=== PATIENT | female | born 1955 | race Caucasian/White ===

== ENCOUNTER 2020-11-19 10:43 | Observation (INO) | payer OTHER ==
[2020-11-19] MEDS ORDERED: SODIUM CHLORIDE 0.9% 500 ML 500 ML IV ONE (10:52)
[2020-11-19 11:16] LABS: Basophils % (A) 0 %; Eosinophils % (A) 0 %; HCT 39.9 % (34.0-46.0); HGB 13.8 gm/dL (11.4-16.0); Lymphocytes # (A) 1.3 k/uL (1.0-4.8); Lymphocytes % (A) 11 %; MCHC 34.5 g/dL (31.0-37.0); MCV 89.7 fL (80.0-100.0); Mean Platelet Volume 6.5; Monocytes # (A) 0.8 k/uL (0-1.0); Monocytes % (A) 6 %; Neutrophils # (A) 10.1 k/uL (1.3-7.7); Neutrophils % (A) 82 %; Platelet Count 360 k/uL (150-450); RBC 4.44 m/uL (3.80-5.40); RDW 12.7 % (11.5-15.5); WBC 12.4 k/uL (3.8-10.6)
--- NOTE | 2020-11-19 11:23 | ED ---
General Adult HPI - General Chief complaint: Altered Mental Status Stated complaint: ams Time Seen by Provider: 11/19/20 10:50 Source: patient, family, EMS, RN notes reviewed, old records reviewed Mode of arrival: EMS Limitations: no limitations - History of Present Illness Initial comments: 65-year-old female, history obtained from EMS and the patient's . She's had worsening confusion, hallucination over the past several days. Patient states she's had a steady decline over the past several weeks. She is unable to dress herself. She is not eating or drinking well. She has a history of Parkinson's. She has not had a reported fever. No vomiting. No pain complaints. - Related Data Home Medications Medication Instructions Recorded Confirmed Aspirin EC [Ecotrin Low Dose] 81 mg PO DAILY 11/19/20 11/19/20 Carbidopa/Levodopa [Sinemet 25-100 2 tab PO TID 11/19/20 11/19/20 mg Tablet] Cholecalciferol [Vitamin D3 (25 50 mcg PO DAILY 11/19/20 11/19/20 Mcg = 1000 Iu)] PARoxetine [Paxil] 10 mg PO DAILY 11/19/20 11/19/20 Simvastatin [Zocor] 20 mg PO HS 11/19/20 11/19/20 Allergies Allergy/AdvReac Type Severity Reaction Status Date / Time No Known Allergies Allergy Verified 11/19/20 12:07 Review of Systems ROS Statement: Those systems with pertinent positive or pertinent negative responses have been documented in the HPI. ROS Other: All systems not noted in ROS Statement are negative. Past Medical History Past Medical History: No Reported History Additional Past Medical History / Comment(s): MS, Parkinson's History of Any Multi-Drug Resistant Organisms: None Reported Past Surgical History: No Surgical Hx Reported Past Psychological History: No Psychological Hx Reported Smoking Status: Never smoker Past Alcohol Use History: None Reported General Exam Limitations: no limitations General appearance: alert, in no apparent distress Head exam: Present: atraumatic, normocephalic Eye exam: Present: normal appearance, PERRL ENT exam: Present: mucous membranes dry Neck exam: Present: normal inspection. Absent: tenderness, meningismus Respiratory exam: Present: normal lung sounds bilaterally. Absent: respiratory distress, wheezes, rales Cardiovascular Exam: Present: regular rate, normal rhythm GI/Abdominal exam: Present: soft. Absent: distended, tenderness, guarding, rebound Extremities exam: Present: normal inspection, normal capillary refill. Absent: pedal edema Neurological exam: Present: alert, other (Tremor). Absent: oriented X3, motor sensory deficit Skin exam: Present: warm, dry, intact Course Vital Signs 11/19/20 11/19/20 11/19/20 10:49 11:04 12:51 Temperature 98.5 F Pulse Rate 104 H 90 90 Respiratory 22 20 18 Rate Blood Pressure 158/100 140/50 O2 Sat by Pulse 100 96 Oximetry EKG Findings - EKG Comments: EKG Findings:: EKG: Normal sinus rhythm no ST segment elevation, poor baseline secondary to tremor artifact. Rate of 98. WA interval 126, QRS duration 68, QTC 441 Medical Decision Making - Medical Decision Making 65-year-old female with several days of progressive worsening confusion. Concern that this patient cannot remain at home given her current status. She has had CT brain which is negative for intracranial hemorrhage or mass effect. Showing diffuse atrophy. She has a leukocytosis, stable hemoglobin, normal CMP, 2+ ketones on urinalysis consistent with dehydration. She's given IV hydration and will be admitted for further evaluation treatment. Case discussed with Dr. Swain. - Lab Data Result diagrams: 11/19/20 10:58 11/19/20 10:58 Lab Results 11/19/20 11/19/20 11/19/20 Range/Units 10:58 10:58 10:58 WBC 12.4 H (3.8-10.6) k/uL RBC 4.44 (3.80-5.40) m/uL Hgb 13.8 (11.4-16.0) gm/dL Hct 39.9 (34.0-46.0) % MCV 89.7 (80.0-100.0) fL MCH 31.0 (25.0-35.0) pg MCHC 34.5 (31.0-37.0) g/dL RDW 12.7 (11.5-15.5) % Plt Count 360 (150-450) k/uL MPV 6.5 Neutrophils % 82 % Lymphocytes % 11 % Monocytes % 6 % Eosinophils % 0 % Basophils % 0 % Neutrophils # 10.1 H (1.3-7.7) k/uL Lymphocytes # 1.3 (1.0-4.8) k/uL Monocytes # 0.8 (0-1.0) k/uL Eosinophils # 0.0 (0-0.7) k/uL Basophils # 0.0 (0-0.2) k/uL PT 10.6 (9.0-12.0) sec INR 1.0 (<1.2) APTT 25.4 (22.0-30.0) sec Sodium (137-145) mmol/L Potassium (3.5-5.1) mmol/L Chloride (98-107) mmol/L Carbon Dioxide (22-30) mmol/L Anion Gap mmol/L BUN (7-17) mg/dL Creatinine (0.52-1.04) mg/dL Est GFR (CKD-EPI)AfAm (>60 ml/min/1.73 sqM) Est GFR (CKD-EPI)NonAf (>60 ml/min/1.73 sqM) Glucose (74-99) mg/dL Calcium (8.4-10.2) mg/dL Total Bilirubin (0.2-1.3) mg/dL AST (14-36) U/L ALT (4-34) U/L Alkaline Phosphatase (38-126) U/L Troponin I (0.000-0.034) ng/mL Total Protein (6.3-8.2) g/dL Albumin (3.5-5.0) g/dL Urine Color Yellow Urine Appearance Clear (Clear) Urine pH 6.0 (5.0-8.0) Ur Specific [place] 1.023 (1.001-1.035) Urine Protein 1+ H (Negative) Urine Glucose (UA) Negative (Negative) Urine Ketones 2+ H (Negative) Urine Blood Moderate H (Negative) Urine Nitrite Negative (Negative) Urine Bilirubin Negative (Negative) Urine Urobilinogen <2.0 (<2.0) mg/dL Ur Leukocyte Esterase Negative (Negative) Urine RBC 3 (0-5) /hpf Urine WBC 4 (0-5) /hpf Ur Squamous Epith Cells <1 (0-4) /hpf Urine Mucus Rare H (None) /hpf Influenza Type A (PCR) (Not Detectd) Influenza Type B (PCR) (Not Detectd) RSV (PCR) (Not Detectd) SARS-CoV-2 (PCR) (Not Detectd) 11/19/20 11/19/20 11/19/20 Range/Units 10:58 10:58 11:00 WBC (3.8-10.6) k/uL RBC (3.80-5.40) m/uL Hgb (11.4-16.0) gm/dL Hct (34.0-46.0) % MCV (80.0-100.0) fL MCH (25.0-35.0) pg MCHC (31.0-37.0) g/dL RDW (11.5-15.5) % Plt Count (150-450) k/uL MPV Neutrophils % % Lymphocytes % % Monocytes % % Eosinophils % % Basophils % % Neutrophils # (1.3-7.7) k/uL Lymphocytes # (1.0-4.8) k/uL Monocytes # (0-1.0) k/uL Eosinophils # (0-0.7) k/uL Basophils # (0-0.2) k/uL PT (9.0-12.0) sec INR (<1.2) APTT (22.0-30.0) sec Sodium 137 (137-145) mmol/L Potassium 3.8 (3.5-5.1) mmol/L Chloride 104 (98-107) mmol/L Carbon Dioxide 27 (22-30) mmol/L Anion Gap 6 mmol/L BUN 22 H (7-17) mg/dL Creatinine 0.69 (0.52-1.04) mg/dL Est GFR (CKD-EPI)AfAm >90 (>60 ml/min/1.73 sqM) Est GFR (CKD-EPI)NonAf >90 (>60 ml/min/1.73 sqM) Glucose 110 H (74-99) mg/dL Calcium 9.2 (8.4-10.2) mg/dL Total Bilirubin 0.8 (0.2-1.3) mg/dL AST 92 H (14-36) U/L ALT 29 (4-34) U/L Alkaline Phosphatase 78 (38-126) U/L Troponin I <0.012 (0.000-0.034) ng/mL Total Protein 6.8 (6.3-8.2) g/dL Albumin 4.1 (3.5-5.0) g/dL Urine Color Urine Appearance (Clear) Urine pH (5.0-8.0) Ur Specific [place] (1.001-1.035) Urine Protein (Negative) Urine Glucose (UA) (Negative) Urine Ketones (Negative) Urine Blood (Negative) Urine Nitrite (Negative) Urine Bilirubin (Negative) Urine Urobilinogen (<2.0) mg/dL Ur Leukocyte Esterase (Negative) Urine RBC (0-5) /hpf Urine WBC (0-5) /hpf Ur Squamous Epith Cells (0-4) /hpf Urine Mucus (None) /hpf Influenza Type A (PCR) Not Detected (Not Detectd) Influenza Type B (PCR) Not Detected (Not Detectd) RSV (PCR) Not Detected (Not Detectd) SARS-CoV-2 (PCR) Not Detected (Not Detectd) Disposition Clinical Impression: Altered mental status, Dehydration Disposition: ADMITTED IP TO THIS [facility] Condition: Stable Is patient prescribed a controlled substance at d/c from ED?: No Referrals: None,Stated [Primary Care Provider] - 1-2 days Decision to Admit Reason: Admit from EC Decision Date: 11/19/20 Decision Time: 14:00
[2020-11-19 11:24] LABS: ALT 29 U/L (4-34); AST 92 U/L (14-36); African American GFR (CKD) >90 (>60 ml/min/1.73 sqM); Albumin 4.1 g/dL (3.5-5.0); Alkaline Phosphatase 78 U/L (38-126); Anion Gap 6 mmol/L; Blood Urea Nitrogen 22 mg/dL (7-17); Calcium 9.2 mg/dL (8.4-10.2); Carbon Dioxide 27 mmol/L (22-30); Chloride 104 mmol/L (98-107); Glucose 110 mg/dL (74-99); Non-African American GFR(CKD) >90 (>60 ml/min/1.73 sqM); Potassium 3.8 mmol/L (3.5-5.1); Sodium 137 mmol/L (137-145); Total Bilirubin 0.8 mg/dL (0.2-1.3); Total Protein 6.8 g/dL (6.3-8.2)
[2020-11-19 11:37] LABS: Partial Thromboplastin Time 25.4 sec (22.0-30.0); Prothrombin Time 10.6 sec (9.0-12.0)
--- NOTE | 2020-11-19 12:55 | CT ---
EXAMINATION TYPE: CT brain wo con DATE OF EXAM: 11/19/2020 HISTORY: Weakness, visual disturbance, confusion. CT DLP: 1158 mGycm. Automated Exposure Control for Dose Reduction was Utilized. TECHNIQUE: CT scan of the head is performed without contrast. COMPARISON: None. FINDINGS: There is no acute intracranial hemorrhage or midline shift identified. There is mild diff use ventricular and sulcal prominence over the bilateral frontal lobes. Ch[place]-white matter differentia tion is maintained. Patchy soft tissue density consistent with cerumen is seen in the deep aspect of the external auditory canals bilaterally. The globes are intact and the visualized sinuses are clear. IMPRESSION: No acute intracranial hemorrhage or midline shift. There is mild to borderline moderate diffuse bilateral frontal lobe atrophy.
[2020-11-19 12:58] LABS: Appearance,Urine Clear (Clear); Bilirubin,Urine Negative (Negative); Blood,Urine Moderate (Negative); Color,Urine Yellow; Glucose,Urine (UA) Negative (Negative); Ketones,Urine 2+ (Negative); Leukocyte Esterase,Urine Negative (Negative); Mucus,Urine Rare /hpf; Nitrite,Urine Negative (Negative); Protein,Urine 1+ (Negative); RBC,Urine 3 /hpf (0-5); Specific Gravity,Urine 1.023 (1.001-1.035); Squamous Epithelial Cell,Urine <1 /hpf (0-4); Urobilinogen,Urine <2.0 mg/dL (<2.0); WBC,Urine 4 /hpf (0-5)
[2020-11-19] MEDS ORDERED: NALOXONE 0.4 MG/ML 1 ML VIAL IV PRN (13:58)
[2020-11-19] MEDS: ASPIRIN 81 MG PO SCH (14:44)
[2020-11-19] MEDS: SODIUM CHLORIDE 0.9% 1,000 ML IV SCH (14:44)
[2020-11-19] MEDS: PARoxetine 10 MG TAB PO SCH (14:44)
[2020-11-19] MEDS: CARBIDOPA-LEVODOPA 25-100 MG 1 EACH TAB PO SCH ×2 (16:12→22:35)
[2020-11-19] MEDS ORDERED: ATORVASTATIN 10 MG TAB PO SCH (21:00)
[2020-11-20] MEDS: SODIUM CHLORIDE 0.9% 1,000 ML IV SCH (00:19)
[2020-11-20 05:13] VITALS: TEMP 98.1
[2020-11-20 07:44] VITALS: BP 149/66; PULSE 86; RESP 16
[2020-11-20] MEDS: ASPIRIN 81 MG PO SCH (07:57)
[2020-11-20] MEDS: CARBIDOPA-LEVODOPA 25-100 MG 1 EACH TAB PO SCH (07:57)
[2020-11-20] MEDS: PARoxetine 10 MG TAB PO SCH (07:57)
[2020-11-20] MEDS ORDERED: CHOLECALCIFEROL 25 MCG (1000 IU) TABLET PO SCH (09:00)
[2020-11-20] MEDS ORDERED: RIVASTIGMINE 4.6MG/24HR PATCH TRANSDERM SCH (10:30)
--- NOTE | 2020-11-20 10:33 | P.HPIM ---
History of Present Illness H&P Date: 11/19/20 65-year-old female was brought in a cousin generalized weakness which is progressively getting worse and today which is much worse for last couple days has been going on for last several weeks. Patient does have history of Parkinson's. Patient denied any dysuria nausea vomiting patient doesn't have any signs or symptoms of sepsis chest x-ray did not show any pneumonia a year is not impressive for urinary tract infection. Patient doesn't have any fever. Patient is not on any medications that can cause confusion. Patient was recently started on Paxil about 2 months ago. Patient used to be on Lexapro which was switched because the she is believed to have some side effects from that. Patient follows up with neurology as an outpatient. Patient is basically being admitted for physical therapy and occupational therapy evaluation. I'll consult neurology because of her uncontrolled parkinsonian symptoms may benefit from atypical antiparkinsonian medications. Patient is presently on carbidopa levodopa. Review of Systems REVIEW OF SYSTEMS: CONSTITUTIONAL: No fever, no malaise, no fatigue. HEENT: No recent visual problems or hearing problems. Denied any sore throat. CARDIOVASCULAR: No chest pain, orthopnea, PND, no palpitations, no syncope. PULMONARY: No shortness of breath, no cough, no hemoptysis. GASTROINTESTINAL: No diarrhea, no nausea, no vomiting, no abdominal pain. NEUROLOGICAL: As mentioned in HPI HEMATOLOGICAL: Denies any bleeding or petechiae. GENITOURINARY: Denies any burning micturition, frequency, or urgency. MUSCULOSKELETAL/RHEUMATOLOGICAL: Denies any joint pain, swelling, or any muscle pain. ENDOCRINE: Denies any polyuria or polydipsia. The rest of the 14-point review of systems is negative. Past Medical History Past Medical History: No Reported History Additional Past Medical History / Comment(s): MS, Parkinson's History of Any Multi-Drug Resistant Organisms: None Reported Past Surgical History: Section Past Anesthesia/Blood Transfusion Reactions: No Reported Reaction Past Psychological History: No Psychological Hx Reported Smoking Status: Never smoker Past Alcohol Use History: None Reported Past Drug Use History: None Reported - Past Family History Father History Unknown: Yes Mother History Unknown: Yes Medications and Allergies Home Medications Medication Instructions Recorded Confirmed Type Aspirin EC [Ecotrin Low Dose] 81 mg PO DAILY 11/19/20 11/19/20 History Carbidopa/Levodopa [Sinemet 25-100 2 tab PO TID 11/19/20 11/19/20 History mg Tablet] Cholecalciferol [Vitamin D3 (25 50 mcg PO DAILY 11/19/20 11/19/20 History Mcg = 1000 Iu)] PARoxetine [Paxil] 10 mg PO DAILY 11/19/20 11/19/20 History Simvastatin [Zocor] 20 mg PO HS 11/19/20 11/19/20 History Allergies Allergy/AdvReac Type Severity Reaction Status Date / Time No Known Allergies Allergy Verified 11/19/20 12:07 Physical Exam Vitals: Vital Signs Temp Pulse Pulse Resp BP BP Pulse Ox 11/20/20 08:00 16 11/20/20 07:00 98.1 F 86 16 149/66 98 11/20/20 04:00 98.1 F 80 18 143/75 97 11/20/20 00:17 97.6 F 61 18 112/56 99 11/19/20 22:00 70 16 112/64 99 11/19/20 18:29 98.5 F 63 18 108/57 100 11/19/20 16:04 76 20 150/76 99 11/19/20 14:46 96 20 160/81 97 11/19/20 12:51 90 18 140/50 96 11/19/20 11:04 90 20 11/19/20 10:49 98.5 F 104 H 22 158/100 100 Intake and Output 11/19/20 11/20/20 11/20/20 22:59 06:59 14:59 Other: Voiding Method Toilet # Voids 1 Weight 59.874 kg PHYSICAL EXAMINATION: GENERAL: The patient is alert and oriented x3, not in any acute distress. Well developed, well nourished. HEENT: Pupils are round and equally reacting to light. EOMI. No scleral icterus. No conjunctival pallor. Normocephalic, atraumatic. No pharyngeal erythema. No thyromegaly. CARDIOVASCULAR: S1 and S2 present. No murmurs, rubs, or gallops. PULMONARY: Chest is clear to auscultation, no wheezing or crackles. ABDOMEN: Soft, nontender, nondistended, normoactive bowel sounds. No palpable organomegaly. MUSCULOSKELETAL: No joint swelling or deformity. EXTREMITIES: No cyanosis, clubbing, or pedal edema. NEUROLOGICAL: Significant parkinsonian tremor generalized weakness no focal deficits. SKIN: No rashes. Results CBC & Chem 7: 11/19/20 10:58 11/19/20 10:58 Labs: Abnormal Lab Results - Last 24 Hours (Table) 11/19/20 11/19/20 11/19/20 Range/Units 10:58 10:58 10:58 WBC 12.4 H (3.8-10.6) k/uL Neutrophils # 10.1 H (1.3-7.7) k/uL BUN 22 H (7-17) mg/dL Glucose 110 H (74-99) mg/dL AST 92 H (14-36) U/L Urine Protein 1+ H (Negative) Urine Ketones 2+ H (Negative) Urine Blood Moderate H (Negative) Urine Mucus Rare H (None) /hpf Thrombosis Risk Factor Assmnt - Choose All That Apply Any of the Below Risk Factors Present?: No Other Risk Factors: Yes Each Risk Factor Represents 2 Points: Age 61-74 years Other congenital or acquired thrombophilia - If yes, enter type in comment: No Thrombosis Risk Factor Assessment Total Risk Factor Score: 2 Thrombosis Risk Factor Assessment Level: Low Risk Assessment and Plan Plan: -Generalized weakness: Secondary to worsening Parkinson's. We'll consult neurology physical therapy occupational therapy evaluation patient may need placement in subacute rehabilitation will need physical therapy . -Hyperlipidemia -Depression -Possible parkinsonian dementia. -DVT prophylaxis Lovenox
[2020-11-20] MEDS ORDERED: ENOXAPARIN 40 MG/0.4 ML SYRINGE SQ SCH (10:45)
--- NOTE | 2020-11-20 11:09 | P.CNNES ---
History of Present Illness Consult date: 11/20/20 Requesting physician: Chris Swain Reason for Consult: Parkinson's and weakness History of Present Illness: Patient is a 65-year-old female came to the hospital 10:43 AM by ambulance for worsening confusion, hallucination over the past several days. has mentioned that patient has steadily declined over the past several weeks. She was unable to dress herself. She is not eating or drinking well. She has Parkinson's disease. Patient's was present, who informed me that patient was diagnosed with Parkinson's disease about 3 years ago although symptoms have been present. Years before that. She has been having memory issues going on for several months. The hallucination started around Christmastime, when she told her gave her a necklace and she told him "look what Reza gave me", not realizing she was addressing to her Reza. Her states that she is having hallucinations, see people, talking to them who were not there. It is steadily getting worse. She would go to the door, saying "I'm Viky, who are you", when nobody is there. Later on she thought her son was there who was not actually present there. Patient follows up with neurologist Dr. Fernando Evans in [facility]. She saw her neurologist about a month ago, who did not feel patient was in a stage to have hallucinations. Patient was referred to a psychiatrist or a neuropsychologist, had an appointment tomorrow but has been canceled. Her also states that because of the hallucinations, he started decreasing dose of Sinemet from 2 tablets 3 times a day to 1 tablet 3 times a day about a week ago. Since then patient's gait became worse, she was more freezing, staring, stooped. Yesterday he found her in the bathroom, somewhat confused, had put her shirt in the wastebasket other clothes were in the shower. When her went in, she could not stand up, was shaky, h allucinating. Therefore they brought her to the hospital. Patient's also states that patient has been under a lot of stress from recent move, her dad and somewhat . Patient stopped working 3 years ago after she was having problems with keeping her job. He is noticing patient is having difficulty with communication. Patient's also mentioned that often she does not know what she is doing. She would tell her to do something and she would walk in the opposite direction. She sometimes does not understand what she is seeing and will forget in the middle of the sentence. This has been going on for a long time. EMS flow sheet not available. Vital signs arrival blood pressure 158/100, pulse rate 104, temperature 98.5. Blood test shows WBC 12.4 hemoglobin 13.8, platelets 360. PT/PTT normal. Electrolytes are normal, AST is elevated 92, normal ALT 99. Troponin negative. UA shows 1+ protein, moderate blood. No signs of infection. Influenza, RSV and givens virus PCR negative. CT head showed no acute intracranial hemorrhage or midline shift. Mild to borderline moderate diffuse bilateral frontal lobe atrophy. Patient takes Paxil 10 mg, Sinemet 25/100, 2 tablets 3 times a day, vitamin D, Zocor 20 mg and aspirin 81 mg. Review of Systems Patient denies headache, problem with vision, hoarseness, sore throat, dysphagi a. Denies any focal numbness tingling or weakness. No stroke symptoms. Past Medical History Past Medical History: No Reported History Additional Past Medical History / Comment(s): MS, Parkinson's History of Any Multi-Drug Resistant Organisms: None Reported Past Surgical History: Section Past Anesthesia/Blood Transfusion Reactions: No Reported Reaction Past Psychological History: No Psychological Hx Reported Smoking Status: Never smoker Past Alcohol Use History: None Reported Past Drug Use History: None Reported - Past Family History Father History Unknown: Yes Mother History Unknown: Yes Medications and Allergies Home Medications Medication Instructions Recorded Confirmed Type Aspirin EC [Ecotrin Low Dose] 81 mg PO DAILY 11/19/20 11/19/20 History Carbidopa/Levodopa [Sinemet 25-100 2 tab PO TID 11/19/20 11/19/20 History mg Tablet] Cholecalciferol [Vitamin D3 (25 50 mcg PO DAILY 11/19/20 11/19/20 History Mcg = 1000 Iu)] PARoxetine [Paxil] 10 mg PO DAILY 11/19/20 11/19/20 History Simvastatin [Zocor] 20 mg PO HS 11/19/20 11/19/20 History Rivastigmine 4.6MG/24Hr Patch 1 patch TRANSDERM Q24H #20 patch 11/20/20 Rx [Exelon 4.6MG/24Hr Patch] Allergies Allergy/AdvReac Type Severity Reaction Status Date / Time No Known Allergies Allergy Verified 11/19/20 12:07 Physical Examination - Vital Signs Vital Signs: Vital Signs Temp Pulse Pulse Resp BP BP Pulse Ox 11/20/20 07:00 98.1 F 86 16 149/66 98 11/20/20 04:00 98.1 F 80 18 143/75 97 11/20/20 00:17 97.6 F 61 18 112/56 99 11/19/20 22:00 70 16 112/64 99 11/19/20 18:29 98.5 F 63 18 108/57 100 11/19/20 16:04 76 20 150/76 99 11/19/20 14:46 96 20 160/81 97 11/19/20 12:51 90 18 140/50 96 11/19/20 11:04 90 20 11/19/20 10:49 98.5 F 104 H 22 158/100 100 Intake and Output 11/19/20 11/20/20 11/20/20 22:59 06:59 14:59 Other: Voiding Method Toilet # Voids 1 Weight 59.874 kg Patient is a late middle aged female, very pleasant, in no acute distress. Patient is alert awake oriented to time place and person. Patient knows it is November 2020 and that she is in [facility]. She could not tell which county she lives in. Speech and language functions are normal. Patient can name, repeat well. Patient has sketchy thoughts at times. Attention, concentration and fund of knowledge is adequate. Patient has positive bilateral palmomental reflex, positive visuospatial apraxia. On cranial examination, pupils are round and reacting to light, visual singer are full on confrontation, extraocular muscles are intact with no nystagmus. Face is symmetric, tongue protrudes to the midline. Palatal elevation and sensation normal, hearing and shoulder shrug normal, facial sensation normal. Shoulder shrug normal. On muscle strength testing, there is no pronator drift and the strength is normal in arms and legs distally and proximally. Deep tendon reflexes are 2+ and plantars downgoing. Sensory to touch is equal with no neglect. Cerebellar function showed no ataxia for [id number] testing. No dysdiadochokinesia. Tone is mildly increased on the right and bulk of muscles normal. Patient has mild dyskinesia is noted. No tremors at rest. Does not appear bradykinetic at this time. Gait normal although appears slightly unsteady. On general examination, there is no carotid bruit or murmur, S1-S2 audible. Abdomen is soft nontender. Chest is clear. Peripheral pulses are present. No edema. Results - Laboratory Findings CBC and BMP: 11/19/20 10:58 11/19/20 10:58 Abnormal Lab Findings: Abnormal Labs 11/19/20 11/19/20 11/19/20 10:58 10:58 10:58 WBC 12.4 H Neutrophils # 10.1 H BUN 22 H Glucose 110 H AST 92 H Urine Protein 1+ H Urine Ketones 2+ H Urine Blood Moderate H Urine Mucus Rare H Assessment and Plan Assessment: * Parkinson's disease/parkinsonism, probable dementia and chronic hallucinations, progressively getting worse. Combination of these features are suggestive of possible Lewy body dementia. Plan: * Continue Sinemet 25/100, 2 tablets 3 times a day. * Patient has definite signs of dementia. We will start her on Exelon patch 4.6 mg daily. Possible side effects were discussed. Patient's was encouraged to make sure to follow-up with the psychiatrist as was planned. Patient has an appointment with her neurologist on 12/07/2020 at 8:15 AM. * We will check B12, folate, TSH 4.25, RPR. * PT OT has evaluated the patient. * Neurologically clear for discharge if cleared by PT and OT.
--- NOTE | 2020-11-20 11:28 | P.DS ---
Providers Date of admission: 11/19/20 13:58 Attending physician: Chris Swain Consults: 11/19/20 13:50 Consult Physician Routine Consulting Provider: Antonio Cedillo Consult Reason/Comments: Parkinson's and weakness Do you want consulting provider notified?: Yes Primary care physician: Stated None Hospital Course: 65-year-old female was brought in a cousin generalized weakness which is progressively getting worse and today which is much worse for last couple days has been going on for last several weeks. Patient does have history of Parkinson's. Patient denied any dysuria nausea vomiting patient doesn't have any signs or symptoms of sepsis chest x-ray did not show any pneumonia a year is not impressive for urinary tract infection. Patient doesn't have any fever. Patient is not on any medications that can cause confusion. Patient was recently started on Paxil about 2 months ago. Patient used to be on Lexapro which was switched because the she is believed to have some side effects from that. Patient follows up with neurology as an outpatient. Patient is basically being admitted for physical therapy and occupational therapy evaluation. I'll consult neurology because of her uncontrolled parkinsonian symptoms may benefit from atypical antiparkinsonian medications. Patient is presently on carbidopa levodopa. 11/20/2020 Patient was evaluated by neurology and patient does have a signs of dementia including new by dementia because of which patient was started and was treatment. Patient's symptoms of tremor did improve her stent did improve apparently patient was only giving Her dose of Sinemet at home since I put her on her actually usual dose of Sinemet have symptoms appear to have improved physical up activation that evaluated the patient. Patient will definitely need support but will not require any subacute rehabilitation at this time patient will be discharged today to follow up with her neurologist and PCP as an outpatient. PHYSICAL EXAMINATION: GENERAL: The patient is alert and oriented x3, not in any acute distress. Well developed, well nourished. Significant improvement in her tremor HEENT: Pupils are round and equally reacting to light. EOMI. No scleral icterus. No conjunctival pallor. Normocephalic, atraumatic. No pharyngeal erythema. No thyromegaly. CARDIOVASCULAR: S1 and S2 present. No murmurs, rubs, or gallops. PULMONARY: Chest is clear to auscultation, no wheezing or crackles. ABDOMEN: Soft, nontender, nondistended, normoactive bowel sounds. No palpable organomegaly. MUSCULOSKELETAL: No joint swelling or deformity. EXTREMITIES: No cyanosis, clubbing, or pedal edema. NEUROLOGICAL: Gross neurological examination did not reveal any focal deficits. As have some generalized weakness SKIN: No rashes. Assessment and Plan Plan: -Generalized weakness: Secondary to worsening Parkinson's. Patient probably a lot require any placement at this time. 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 She was started on Exelon patch B12 and folate levels were ordered as well this can be followed as an outpatient. Patient Condition at Discharge: Stable Plan - Discharge Summary New Discharge Prescriptions: New Rivastigmine 4.6MG/24Hr Patch [Exelon 4.6MG/24Hr Patch] 1 patch TRANSDERM Q24H #20 patch Continue PARoxetine [Paxil] 10 mg PO DAILY Carbidopa/Levodopa [Sinemet 25-100 mg Tablet] 2 tab PO TID Cholecalciferol [Vitamin D3 (25 Mcg = 1000 Iu)] 50 mcg PO DAILY Simvastatin [Zocor] 20 mg PO HS Aspirin EC [Ecotrin Low Dose] 81 mg PO DAILY Discharge Medication List Aspirin EC [Ecotrin Low Dose] 81 mg PO DAILY 11/19/20 [History] Carbidopa/Levodopa [Sinemet 25-100 mg Tablet] 2 tab PO TID 11/19/20 [History] Cholecalciferol [Vitamin D3 (25 Mcg = 1000 Iu)] 50 mcg PO DAILY 11/19/20 [History] PARoxetine [Paxil] 10 mg PO DAILY 11/19/20 [History] Simvastatin [Zocor] 20 mg PO HS 11/19/20 [History] Rivastigmine 4.6MG/24Hr Patch [Exelon 4.6MG/24Hr Patch] 1 patch TRANSDERM Q24H #20 patch 11/20/20 [Rx] Follow up Appointment(s)/Referral(s): José Richards III, MD [STAFF PHYSICIAN] - 1 Week
--- NOTE | 2020-11-21 08:45 | XR ---
EXAMINATION TYPE: XR chest 2V DATE OF EXAM: 11/19/2020 COMPARISON: NONE HISTORY: Altered mental status and weakness. TECHNIQUE: Frontal and lateral views of the chest are obtained. FINDINGS: There is mild chronic parenchymal change without suspicious focal air space opacity, pleur al effusion, or pneumothorax seen. The cardiac silhouette size is within normal limits. The osseou s structures are demineralized. IMPRESSION: No acute process.
[2020-11-21 17:20] LABS: Folate, Serum 18.7 ng/mL
== END 2020-11-20 12:15 | disposition home or self-care (01) ==
LOC: EC 10:43 → 1SOBS 13:58 → 6NMEDSUR 19:48
PROVIDERS: ADMIT Internal Medicine; ATTEND Internal Medicine
DX: G20 Parkinson's disease (principal); F02.80 Dementia in other diseases classified elsewhere, unspecified severity, without behavioral disturbance, psychotic disturbance, mood disturbance, and anxiety; R44.3 Hallucinations, unspecified; E86.0 Dehydration; D72.829 Elevated white blood cell count, unspecified; E78.5 Hyperlipidemia, unspecified; F32.9 Major depressive disorder, single episode, unspecified; Z20.822 Contact with and (suspected) exposure to COVID-19; Z79.82 Long term (current) use of aspirin; Z79.899 Other long term (current) drug therapy; Z98.891 History of uterine scar from previous surgery
CPT/HCPCS: 96360; 99285; 36415; 93005; 97162; 97166; 80053; 84443; 82607; 82746; 84484; 85025; 85610; 85730; 81001; 86780; 87636; 71046; 70450; G0378 ×2